=== PATIENT | male | born 1960 | race Caucasian/White ===

== ENCOUNTER → 2017-06-15 | Outpatient (CLI) | payer OTHER | END | disposition home or self-care (01) | LOC: KCIC 15:41 | DX: C91.10 Chronic lymphocytic leukemia of B-cell type not having achieved remission (principal); M19.012 Primary osteoarthritis, left shoulder | CPT/HCPCS: 73030 ==

== ENCOUNTER → 2018-08-09 | Outpatient (CLI) | payer OTHER ==
[2014-05-19 14:00] VITALS: BP 143/77
[~2018-08-09] MED LIST: ATOR20TA58 PO; HYDR-3164 PO; MOME17SP NS; NAPR-634 PO
--- NOTE | 2018-08-09 11:11 | RAD ---
Right lower extremity venous ultrasound, 08/09/2018 : History: Right lower extremity swelling Duplex evaluation including grayscale, color flow and spectral Doppler analysis was performed. The common femoral and superficial femoral veins are patent. There is a nonocclusive filling defect in the popliteal vein compatible with thrombus. This extends into posterior tibial and peroneal veins. IMPRESSION: Nonoccluding deep vein thrombosis is evident in the right popliteal, posterior tibial and peroneal veins. Note: The seating and mobility technologist is currently calling this report to Dr. Duarte's office at approximately 11:15 AM on 08/09/2018. Electronically signed by: Gabo Aldana MD (08/09/2018 11:08 AM) [facility]
== END | disposition home or self-care (01) ==
LOC: US 10:24
PROVIDERS: ATTEND Internal Medicine Hematology & Oncology
DX: I82.431 Acute embolism and thrombosis of right popliteal vein (principal); Z88.8 Allergy status to other drugs, medicaments and biological substances
CPT/HCPCS: 93971

== ENCOUNTER → 2019-01-27 | Outpatient (CLI) | payer OTHER ==
[2014-05-19 14:00] VITALS: BP 143/77
--- NOTE | 2019-01-27 16:10 | RAD ---
Examination: VENOUS LOWER EXTREMITY RIGHT History: History of DVT Comparison/Correlation: 08/09/2018 right lower extremity venous duplex ultrasound exam FINDINGS: Right lower extremity duplex venous ultrasound exam was performed. Grayscale, color Doppler, and spectral Doppler imaging was performed. Compression and augmentation was performed. The right common femoral vein, superficial femoral vein, popliteal vein, and greater saphenous vein are normal with no evidence of deep venous thrombus. Normal compressibility and augmentation is evident. Visualized left calf veins are unremarkable. IMPRESSION: Normal right lower extremity duplex ultrasound exam. No evidence of deep venous thrombus involving the right lower extremity. Resolution of previously reported right popliteal, posterior tibial, and peroneal venous thrombus involvement. Electronically signed by: Tadeo Reagan MD (01/27/2019 4:07 PM) [facility]
== END | disposition home or self-care (01) ==
LOC: US 15:09
PROVIDERS: ATTEND Internal Medicine Hematology & Oncology
DX: I82.421 Acute embolism and thrombosis of right iliac vein (principal)
CPT/HCPCS: 93971